=== PATIENT | male | born 1960 | race Caucasian/White ===

== ENCOUNTER → 2019-09-25 | Outpatient (CLI) | payer OTHER ==
[2019-09-25 14:11] LABS: POTASSIUM 4.7 mmol/L (3.6-5.0)
[2019-09-25 14:57] LABS: FERRITIN 73.7 ng/mL (17.9-464.0)
== END ==
LOC: OD 12:38
PROVIDERS: ATTEND Registered Nurse
DX: G47.61 Periodic limb movement disorder (principal)
CPT/HCPCS: 36415; 82607; 82728; 82747; 83735; 84132